=== PATIENT | male | born 1975 | race African-American/Black ===

== ENCOUNTER 2016-11-25 20:35 | Emergency (ER) | payer OTHER ==
[~2016-11-25] VITALS: Ht 175.3 cm; Wt 81.7 kg
[2016-11-25] MEDS ORDERED: NORVASC10 MG PO (20:49)
[2016-11-25] MEDS ORDERED: LIPITOR10 MG PO (20:50)
[2016-11-25] MEDS ORDERED: ZESTRIL10 MG PO (20:50)
[2016-11-25] MEDS ORDERED: TYLENOL WITH C1 EACH PO (23:30)
== END 2016-11-25 23:40 | disposition home or self-care (01) ==
LOC: ED 20:35 → EDBD 20:36 → ED 23:40
PROC: 0Q903ZZ Drainage of Lumbar Vertebra, Percutaneous Approach (ICD-10-PCS; principal; 2016-11-25)
DX: A87.9 Viral meningitis, unspecified (principal); B34.9 Viral infection, unspecified; I10 Essential (primary) hypertension; Z79.899 Other long term (current) drug therapy; Z87.891 Personal history of nicotine dependence
CPT/HCPCS: 62270; 80053; 81001; 82945; 84157; 85025; 85032; 87070; 87075; 87205; 87529; 87798; 89051; 96361; 96374; 96375; 99284; J1885; J2765; J3010; J7030